=== PATIENT | male | born 2000 | race Caucasian/White ===

== ENCOUNTER 2024-06-14 19:32 | Emergency (ER) | payer BC, SELFPAY ==
[2024-06-14 19:36] VITALS: BP 120/82
--- NOTE | 2024-06-14 21:05 | ED.GENMED ---
History of Present Illness
General
Chief Complaint: Musculo-Skeletal Complaint
Time Seen by Provider: 06/14/24 20:19
History of Present Illness
History of Present Illness:
23-year-old male presents to the emergency department for evaluation of left thumb injury sustained while playing basketball, states the thumb got caught on another players shirt and was pulled forcefully. Arrives with a noticeable deformity to the
MCP joint most likely representing a dislocation. No distal paresthesia
Review of Systems
Review of Systems
Allergies reviewed?: Yes
All Other Systems: ROS reviewed and negative except as documented in HPI and ROS
Phy Exam
Physical Exam
Physical Exam:
GEN: Well appearing, NAD, WDWN
HEENT: Oral mucosa moist, no scleral icterus
Cardiac: Regular rate
Lung: No respiratory distress, no tachypnea
MSK: Deformity of the left MCP joint with radial dislocation of the phalanx
Skin: Good color, no pallor or jaundice, no rashes
Neuro: AO x3, moves all extremities freely
Psych: Calm, cooperative
Course
Orders/Labs/Results
Orders:
Orders
06/14/24 19:39
Hand, Left 3 View [CR Hand - Left Min 3 Views] Urgent
Comment:
Reason For Exam: injury, deformity
06/14/24 20:43
CR Finger(s)/thumb Min 2 Vw Lt Urgent
Comment:
Reason For Exam: post reduction
Vital Signs
Initial and Last Documented VS:
Initial Vital Signs
Temp Pulse Resp BP Pulse Ox
99.3 F 77 18 120/82 97
06/14/24 19:36 06/14/24 19:36 06/14/24 19:36 06/14/24 19:36 06/14/24 19:36
Last Documented Vital Signs
Temp Pulse Resp BP Pulse Ox
99.3 F 77 18 120/82 97
06/14/24 19:36 06/14/24 19:36 06/14/24 19:36 06/14/24 19:36 06/14/24 19:36
Procedures
Splinting/Sling Placement
Left Thumb:
Procedure completed by: Mitul Stubbs PA-C
Pre-splint extermity exam: neurovascular intact
Type of splint: thumb spica
Splint material: fiberglass
Joint/Fracture Reduction
Left Thumb:
Indication for procedure:: MCP Dislocation
Procedure completed by: Mitul Stubbs PA-C
Consent form signed: No
Joint reduced: without anesthesia
Injury was: closed
Further treatement: needs re-check only
Post reduction exam: stable
Capillary Refill: normal
MDM/Problems Addressed
MDM/Problems Addressed:
MCP dislocation reduced at the bedside, thumb spica placed, recommend follow-up with orthopedist when he returns to [place]
*Critical Care Note
Total Time (30-74mins, 75-104mins- exclusive of procedures): Not Applicable
ED Attending Note
-
Portions of this chart may have been created with voice recognition software.� Occasional wrong word or��sound alike� substitutions may have occurred due to the inherent limitations of voice recognition software.
Discharge Plan
Departure
Patient Disposition: Home (Routine Discharge)
Date of Disposition: 06/14/24
Time of Disposition: 21:16
Patient with high blood pressure during this ER visit?: No
Discharge Problem:
Dislocation of left thumb
Instructions: Finger Dislocation (DC)
Activity Restrictions/Additional Instructions:
Use the splint throughout the day for the next 3 days, you may remove for showering after 3 days. Consider purchasing an [id number] thumb spica splint that is less cumbersome than the splint I have applied. Follow-up with orthopedics when he
returns to [place]
Interventions
Interventions:
ED-Musculoskeletal Assessment Last Done: 06/14/24 20:43
Discharge Date and Time
Print Language: CZECH
== END 2024-06-14 21:33 | disposition home or self-care (01) ==
LOC: EMR 19:32
PROVIDERS: EMERGENCY PHYSICIAN Emergency Medicine
DX: S63.115A Dislocation of metacarpophalangeal joint of left thumb, initial encounter (principal); W50.0XXA Accidental hit or strike by another person, initial encounter; Y93.67 Activity, basketball
CPT/HCPCS: 26700; 99283; 73130; 73140